=== PATIENT | female | born 1960 | race Caucasian/White ===

== ENCOUNTER → 2016-09-01 | Outpatient (CLI) | payer OTHER ==
[2016-09-01 14:39] LABS: LDL CHOLESTEROL,CALCULATED 135.2 mg/dL
[2016-09-01 14:39] LABS: ASPARTATE AMINO TRANSFERASE 67 IU/L (8-39); BILIRUBIN,TOTAL 0.5 mg/dL (0.3-1.2); BLOOD UREA NITROGEN 15 mg/dL (7-22); CALCIUM 10.1 mg/dL (8.7-10.7); CHLORIDE 102 meq/L (98-112); CREATININE 0.6 mg/dL (0.50-1.20); EST GLOMERULAR FILTRATION > 60 (>60 ml/min/1.73m(2)); GLUCOSE 181 mg/dL (78-110); POTASSIUM 5.2 meq/L (3.8-5.2); SODIUM 140 meq/L (135-145); TOTAL PROTEIN 7.1 g/dL (6.1-8.0)
[2016-09-01 14:43] LABS: HEMOGLOBIN A1C 8.14 % (4.2-6.0); MEAN BLOOD GLUCOSE (CALC) 185.062 mg/dL
== END ==
LOC: LAB 08:26
PROVIDERS: ATTEND Physician Assistant Medical
DX: E11.9 Type 2 diabetes mellitus without complications (principal); I10 Essential (primary) hypertension; E78.5 Hyperlipidemia, unspecified; F17.210 Nicotine dependence, cigarettes, uncomplicated
CPT/HCPCS: 80053; 80061; 83036

== ENCOUNTER → 2016-09-28 | Outpatient (CLI) | payer OTHER ==
[2016-10-03 08:42] LABS: HEPATITIS B SURFACE AG Negative (Negative)
== END ==
LOC: LAB 11:17
PROVIDERS: ATTEND Physician Assistant Medical
DX: R74.0 Nonspecific elevation of levels of transaminase and lactic acid dehydrogenase [LDH] (principal)
CPT/HCPCS: 87340

== ENCOUNTER → 2016-09-29 | Outpatient (CLI) | payer OTHER | LOC: LAB 08:53 | PROVIDERS: ATTEND Physician Assistant Medical | DX: R94.5 Abnormal results of liver function studies (principal) | CPT/HCPCS: 86803 ==